=== PATIENT | male | born 1940 | race Caucasian/White ===

== ENCOUNTER 2017-04-08 09:47 | Emergency (ER) | payer MEDICARE ==
[2016-09-21 12:09] VITALS: BMI 24.3
[~2017-04-08 09:47] MED LIST: ARICEPT5 MG PO; ARTIFICIAL TEAR15 ML EACH EYE; ATROVENT 0.06%15 ML NS; DEPAKOTE SPRIN125 MG PO; GABAPENTIN100 MG PO; GEODON20 MG PO; HYDROCHLOROTHIA25 MG PO; KLONOPIN1 MG PO; LISINOPRIL10 MG PO; MIRALAX17 GM PO; TRAZODONE HCL50 MG PO; ULTRAM50 MG PO; VALIUM10 MG PO; VITAMIN D5000 UNIT PO; VOLTAREN100 GM TOPICAL; ZOLOFT50 MG PO
== END 2017-04-08 14:34 | disposition home or self-care (01) ==
LOC: D.ER 09:47
DX: H11.32 Conjunctival hemorrhage, left eye (principal); L21.9 Seborrheic dermatitis, unspecified; F31.89 Other bipolar disorder; E83.51 Hypocalcemia

== ENCOUNTER 2017-08-13 09:20 | Inpatient (IN) | payer MEDICARE, MEDICAID ==
[~2017-08-13] VITALS: Ht 172.7 cm; Wt 79.4 kg
[2017-08-13 09:52] LABS: BASOPHILS 0.3 % (0-2); EOSINOPHILS 2.3 % (0-7); HEMATOCRIT 45.4 % (42.0-54.0); HEMOGLOBIN 14.7 g/dL (13.5-17.5); IMMATURE GRANULOCYTES 0.5 % (0-5); LYMPHOCYTES 19.5 % (15-50); MCH 30.2 pg (26.0-34.0); MCHC 32.4 g/dL (31.0-37.0); MCV 93.4 fL (80.0-100.0); MEAN PLATELET VOLUME 10.3 fL (7.4-10.4); NEUTROPHILS 66.4 % (40-80); PLATELET COUNT 200 10x3/uL (130-400); RBC 4.86 10x6/uL (4.20-6.10); WBC 6.2 10x3/uL (4.8-10.8)
[2017-08-13 10:08] LABS: INR 0.92 (0.85-1.17); PROTIME 12.2 SECONDS (11.6-15.0)
[2017-08-13 10:09] LABS: APTT 30.1 SECONDS (22.8-39.4)
[2017-08-13 10:11] LABS: ALBUMIN 3.4 g/dL (3.4-5.0); ALKALINE PHOSPHATASE 80 U/L (46-116); ALT (SGPT) 23 U/L (10-68); BILIRUBIN - TOTAL 0.22 mg/dL (0.2-1.3); CALC OSMOLALITY 284 mosm/kg (275-300); CALCIUM 8.9 mg/dL (8.5-10.1); CARBON DIOXIDE 31.5 mmol/L (21.0-32.0); CHLORIDE - SERUM 102 mmol/L (98-107); CREATININE - SERUM 0.9 mg/dL (0.6-1.3); GLUCOSE 115 mg/dL (74-106); POTASSIUM - SERUM 4.4 mmol/L (3.5-5.1); PROTEIN - SERUM 7.1 g/dL (6.4-8.2); SODIUM 141 mmol/L (136-145); UREA NITROGEN 21 mg/dL (7-18); eGFR NON AFRICAN AMERICAN 87 mL/min (90-120)
[2017-08-13 10:22] LABS: CKMB 2.1 U/L (0.0-3.6); CREATINE KINASE 168 UL (21-232)
[2017-08-13 10:34] LABS: TROPONIN-I < 0.017 ng/mL (0.000-0.060)
[2017-08-13 11:20] LABS: AMORPHOUS SEDIMENT <1+ /lpf (NONE SEEN); APPEARANCE CLEAR (CLEAR); BACTERIA FEW /hpf (NONE SEEN); BILIRUBIN NEGATIVE (NEGATIVE); COLOR YELLOW (YELLOW); EPITHELIAL CELLS RARE /hpf (0-5); GLUCOSE NEGATIVE (NEGATIVE); KETONE NEGATIVE (NEGATIVE); LEUKOCYTE ESTERASE NEGATIVE (NEGATIVE); MUCUS <1+ /lpf (NONE SEEN); NITRITE NEGATIVE (NEGATIVE); PROTEIN NEGATIVE (NEGATIVE); SPECIFIC GRAVITY 1.005 (1.005-1.020); UROBILINOGEN NORMAL (NORMAL)
--- NOTE | 2017-08-13 13:48 | NUR ---
RECEIVED TO ROOM 2233 FROM ER. ECHO BEING PERFORMED.
[2017-08-13 14:10] VITALS: BP 170/73; BMI 26.6
[2017-08-13] MEDS ORDERED: ASCORBIC ACID500 MG PO (14:30)
[2017-08-13] MEDS ORDERED: BUSPAR5 MG PO (14:31)
[2017-08-13] MEDS ORDERED: CALTRATE 600 M600 M1 PO (14:32)
[2017-08-13] MEDS ORDERED: CLARITIN 10 MG10 MG PO (14:33)
[2017-08-13] MEDS ORDERED: COLACE100 MG PO (14:37)
[2017-08-13] MEDS ORDERED: KLONOPIN1 MG PO (14:37)
[2017-08-13] MEDS ORDERED: GEODON20 MG PO (14:38)
[2017-08-13] MEDS ORDERED: IPRATROPIUM BR42 MCG NASAL (14:39)
[2017-08-13] MEDS ORDERED: MELATONIN 3 MG1 TAB (14:53)
[2017-08-13] MEDS ORDERED: MILK OF MAGNESI30 ML PO (14:54)
[2017-08-13] MEDS ORDERED: HYDROCODONE-APA1 TAB PO ×2 (14:55→14:56)
[2017-08-13] MEDS ORDERED: VITAMIN D250000 UNIT PO (14:58)
[2017-08-13] MEDS ORDERED: VOLTAREN100 GM TOPICAL (14:59)
[2017-08-13] MEDS ORDERED: ZOLOFT50 MG PO (15:00)
[2017-08-13 16:24] VITALS: BP 150/65
--- NOTE | 2017-08-13 19:10 | NUR ---
OFF FLOOR TO MRI VIA STRETCHER.
[2017-08-13 20:00] VITALS: BP 132/76
[2017-08-14 04:00] VITALS: BP 140/80
--- NOTE | 2017-08-14 04:06 | NUR ---
EYES CLOSED RESPIRATIONS WITH EASE AND UNLABORED. SR UP X2 CALL LIGHT WITHIN REACHR.
--- NOTE | 2017-08-14 07:30 | NUR ---
PT AOX1 RESP EVEN AND NONLABORED PT HAS CONTINUAL NEEDS OF WANTING TO GET OUT OF BED AND GO DOWN STAIRS PT REMINDED HE CAN NOT GO DOWN STAIRS HE IS TO STAY IN BED. IV TO RIGHT HAND PATENT AND INTACT AT THIS TIME SRX2 BED AT LOWEST SETTING CALL LIGHT WITHIN REACH WILL CONTINUE TO MONITOR
[2017-08-14 08:02] VITALS: BP 124/68
[2017-08-14 12:21] VITALS: BP 160/82
--- NOTE | 2017-08-14 12:22 | EC ---
PATIENT:SATHISH GREENE DATE OF SERVICE: 08/13/17 SEX: M MEDICAL RECORD: [id number] DATE OF : 40 LOCATION:D.[facility] AGE OF PATIENT: 77 ADMISSION DATE: 08/13/17 REFERRING PHYSICIAN: INTERPRETING PHYSICIAN: KATHYA SHERIDAN MD ECHOCARDIOGRAM REPORT ECHO CHARGES 4 ECHO COMPLETE CLINICAL DIAGNOSIS: CVA ECHOCARDIOGRAPHIC MEASUREMENTS (adult normal given) AC root (d.<3.7cm) 3.2 cm LV Septum d (<1.2 cm> 1.5 cm Valve Excursion 1.8 cm LV Septum (systole) 1.8 cm Left Atria (s.<4.0cm> 3.5 cm LVPW d(<1.2cm) 1.4 cm RV (d.<2.3cm) 2.5 cm LVPW (sytole) 1.9 cm LV diastole(<5.6CM) 4.7 cm MV E-F(>70mm/sec) cm LV systole 2.6 cm LVOT Diameter 1.7 cm MV exc.(>10mm) cm Est.ejection fraction (50-75%) % Pericardial Effusion N DOPPLER: LVIT cm/sec A 84.0 cm/sec E 70.0 cm/sec LA cm/sec RVSP mmHg LVOT 107 cm/sec AOP1/2T m/s Asc. Ao 141 cm/sec RVOT 39.0 cm/sec RA cm/sec PA 93.0 cm/sec AV Gradient Peak 8.0 mmHg AV Mean 4.2 mmHg AV Area 1.2 cm MV Gradient Peak 3.1 mmHg MV Mean 1.0 mmHg MV Area cm COMMENTS: Frame Stylist: 1 CEDRIC CHASEOE Inspector Sheet Metal Parts: 3 Dr. Gomez TAPE# PACS DATE OF SERVICE: 08/13/2017 FINDINGS: 1. Left ventricular chamber size is within normal limits. Left ventricular systolic function is normal. Overall ejection fraction estimated at 55%. 2. Left atrium, right atrium, and right ventricle chamber sizes are within normal limits. 3. Valvular structures have normal structure and motion. 4. Doppler interrogation only reveals trace mitral regurgitation, trace tricuspid regurgitation. No other valvular insufficiency or stenosis. ECHOCARDIOGRAM REPORT [id number] SATHISH GREENE 5. No evidence of pericardial effusion or left ventricular thrombus. TRANSINT:[id number] Voice Confirmation ID: [id number] DOCUMENT ID: [id number] KATHYA SHERIDAN MD at 1222 CC: [id number] DICTATION DATE: 08/13/17 1639 PRODUCTION HELPER: 08/13/17 2224 ADM IN [place] [id number] [place] [id number]
[2017-08-14 14:39] VITALS: Ht 172.7 cm; Wt 79.4 kg
[2017-08-14 16:01] VITALS: BP 137/75
[2017-08-14 20:00] VITALS: BP 148/60
--- NOTE | 2017-08-14 22:05 | NUR ---
HEARD PATIENT YELL OUT "HELP, I FELL AND I NEED HELP GETTING UP!" WENT IN PATIENT'S ROOM, HE WAS SITTING ON THE FLOOR, ON A PINK PAD, BLOOD PRESENT ON THE PINK PAD. IV LAYING IN THE FLOOR BESIDE HIM. TOLD HIM TO STAY STILL WHILE I GET HELP. FOUND 3 OTHER NURSES/CNAS TO HELP. ASKED PATIENT IF HE IS HAVING ANY PAIN HE STATED "IN MY RIGHT KNEE." PATIENT HAS A BRACE IN THE CHAIR. HE STATED "I HAVE BAD KNEES." WE PICKED PATIENT UP AND GOT HIM BACK IN BED. WE DID A SKIN ASSESSMENT, NO ABNORMAL FINDING. NO CUTS, LACERATIONS OR BLEEDING. THERE IS DRIED BLOOD ON HIS ARM FROM THE IV. REMOVED PATIENT'S SOCKS AND APPLIED NON-SKID SOCKS. APPLIED A YELLOW ARM BAD. PUT A MIRNA MAT ON PATIENT'S BED. CHECKED FUNCTIONING OF THE MIRNA ALARM, IT IS TURNED ON. GAVE PATIENT HIS CALL LIGHT. 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 WHY WERE YOU GETTING OUT OF THE BED?" PATIENT STATED "I WAS GETTING READY FOR BED." BED IS IN LOWEST POSITION, CALL LIGHT IN REACH. BED RIALS UP X'S 2. EPI LAMAR CALLED . CHARLIE CORONA NOTIFIED OF PATIENT'S FALL.
[2017-08-15 04:00] VITALS: BP 130/72
--- NOTE | 2017-08-15 07:48 | NUR ---
2220) Josue Pro as person to notify notified of incident with no injuries assessed.will continue to monitor for any chges. and follow current plan of care
[2017-08-15 07:58] VITALS: BP 137/80
--- NOTE | 2017-08-15 08:00 | NUR ---
PT CONFUSED AOX1 SELF PT DENIES NEEDS AT THIS TIME SRX2 BED AT LOWEST SETTING CALL LIGHT WITHIN REACH WILL CONTINUE TO MONITOR
[2017-08-15 12:24] VITALS: BP 127/70
--- NOTE | 2017-08-15 13:09 | NUR ---
Patient Name: SATHISH GREENE Admission Status: ER Accout number: [id number] Admission Date: 08-14-2017 : 1940 Admission Diagnosis:TRANSIENT CEREBRAL ISCHEMIC ATTACK, UNSPECIFIED Attending: SHAMA SIMMONS Current LOS: 1 Anticipated DC Date: 08-18-2017 Planned Disposition: Nursing Facility [facility] Cert Primary Insurance: MEDICARE A & B Discharge Planning Comments: CM CALLED FACILITY FOR INFORMATION REGARDING D/C NEEDS AND PLANS. PATIENT IS A RESIDENT AT [facility]. FACILITY [facility] WILL TRANSPORT PATIENT. PATIENT USES A WHEELCHAIR AT FACILITY AND IS A 2 PERSON TRANSFER. PATIENTS PCP IS DR. WATSON AND PHARMACY IS IN HOUSE. CM WILL CONTINUE TO FOLLOW PATIENT WITH D/C NEEDS AND PLANS. PCP DR. WATSON [facility] IN HOUSE PHARMACY DEBBIEMc GREENE (BROTHER) [phone] Lie Detector Operator: Bridget Santacruz Is the patient Alert and Oriented? Yes 0 * How many steps to enter\exit or inside your home? 0 0 * PCP DR. WATSON 0 * Pharmacy IN HOUSE 0 * Preadmission Environment Gas Line Installer Supervisor Retirement 0 * ADLs Partial Dependent 0 * Partial ADLs (Assistance needed) Bathing Dressing Medication Management Toileting Transfers 0 * List name and contact numbers for known caregivers / representatives who currently or will assist patient after discharge: DEBBIE GREENE (BROTHER) [phone] 0 * Community resources currently utilized None 0 * Additional services required to return to the preadmission environment? Yes 0 * Can the patient safely return to the preadmission environment? Yes 0 * Has this patient been hospitalized within the prior 30 days at any hospital? No 0 Grand Total: 0
[2017-08-15 15:27] VITALS: BP 115/68
--- NOTE | 2017-08-15 19:40 | NUR ---
REC'D LYING IN BED RESTING. NO DISTRESS NOTED. WILL CONT TO MONITOR. WILL ADMIN PM/AM MEDS PRESCRIBED. BED LOW, LOCKED, CALL LIGHT IN REACH, ALARM ON.
[2017-08-15 20:00] VITALS: BP 126/62
[2017-08-16 04:00] VITALS: BP 122/62
--- NOTE | 2017-08-16 05:48 | NUR ---
PT RESTING QUIETLY, EYES CLOSED. RESP EVEN, UNLABORED. NO DISTRESS NOTED. CONTINUE SHEET WRITER'S PLAN OF CARE.
[2017-08-16 07:05] VITALS: BP 124/62
--- NOTE | 2017-08-16 07:24 | NUR ---
PRN TRAMADOL ADMINISTERED AT THIS TIME FOR PAIN 08/10. CALL LIGHT IN REACH. WILL CONTINUE WITH PLAN OF CARE.
--- NOTE | 2017-08-16 09:30 | NUR ---
AM MEDICATIONS ADMINISTERED AT THIS TIME. DENIES ANY FURTHER NEEDS. CALL LIGHT IN REACH, SIDE RAILS X2. WILL CONTINUE WITH PLAN OF CARE.
[2017-08-16] MEDS ORDERED: ASPIRIN325 MG PO (11:02)
--- NOTE | 2017-08-16 11:53 | NUR ---
REPORT CALLED TO NOEMI AT [facility]. WILL NOTIFY FACILITY WHEN AMBULANCE ARRIVES TO TRANSPORT PATIENT.
--- NOTE | 2017-08-16 12:21 | NUR ---
D/C PAPERWORK REVIEWED AND IV TO LEFT ARM D/C WITH CATH TIP INTACT.
--- NOTE | 2017-08-16 14:24 | NUR ---
LATE ENTRY 1100 DR SIMMONS ADVISED COURTNEY THAT PATIENT COULD BE DISCHARGED BACK TO [facility] TODAY. TC TO FACILITY. PATIENT CAN RETURN TODAY. CM FAXED CLINICAL AND DISCHARGE SUMMARY. CM PREPARED AMBULANCE TRANSPORT FORM (PCS) THE PRIMARY NURSE, JAZMIN, CALLED REPORT AND FAXED MEDICATION LIST. PATIENT WILL BE DISCHARGED TO A MEDICARE BED PER NOEMI AT [facility]. [facility] PHONE NUMBER- [phone] FAX NUMBER- [phone] TRANSPORTATION VIA [facility]
== END 2017-08-16 14:05 | DRG 65 ==
LOC: D.ER 09:20 → OBSVTIME 12:23 → D.MS 12:23
PROVIDERS: Family Medicine; ADMIT Family Medicine
DX: I63.9 Cerebral infarction, unspecified (principal); F31.89 Other bipolar disorder; I69.354 Hemiplegia and hemiparesis following cerebral infarction affecting left non-dominant side; I10 Essential (primary) hypertension; I69.991 Dysphagia following unspecified cerebrovascular disease; R53.1 Weakness; R13.10 Dysphagia, unspecified; F41.8 Other specified anxiety disorders; Z86.12 Personal history of poliomyelitis

== ENCOUNTER 2017-09-06 19:59 | Inpatient (IN) | payer MEDICARE, MEDICAID ==
[~2017-09-06 19:59] MED LIST changes: +ASCORBIC ACID500 MG PO; +ASPIRIN325 MG PO; +BUSPAR5 MG PO; +CALTRATE 600 M600 M1 PO; +CLARITIN 10 MG10 MG PO; +COLACE100 MG PO; +HYDROCODONE-APA1 TAB PO; +IPRATROPIUM BR42 MCG NASAL; +MELATONIN 3 MG1 TAB; +MILK OF MAGNESI30 ML PO; +VITAMIN D250000 UNIT PO
[2017-09-06 20:52] LABS: BASOPHILS 0.4 % (0-2); EOSINOPHILS 2.5 % (0-7); HEMATOCRIT 42.2 % (42.0-54.0); HEMOGLOBIN 13.4 g/dL (13.5-17.5); IMMATURE GRANULOCYTES 0.4 % (0-5); LYMPHOCYTES 25.6 % (15-50); MCH 29.8 pg (26.0-34.0); MCHC 31.8 g/dL (31.0-37.0); MCV 93.8 fL (80.0-100.0); MEAN PLATELET VOLUME 10.3 fL (7.4-10.4); MONOCYTES 11.7 % (2-11); NEUTROPHILS 59.4 % (40-80); PLATELET COUNT 203 10x3/uL (130-400); RDW 13.7 % (11.5-14.5); WBC 5.5 10x3/uL (4.8-10.8)
[2017-09-06 21:01] LABS: INR 1.03 (0.85-1.17); PROTIME 13.3 SECONDS (11.6-15.0)
[2017-09-06 21:02] LABS: APTT 29.9 SECONDS (22.8-39.4)
[2017-09-06 21:13] LABS: ALKALINE PHOSPHATASE 67 U/L (46-116); ALT (SGPT) 22 U/L (10-68); BILIRUBIN - TOTAL 0.16 mg/dL (0.2-1.3); CALC OSMOLALITY 279 mosm/kg (275-300); CALCIUM 8.4 mg/dL (8.5-10.1); CARBON DIOXIDE 31.8 mmol/L (21.0-32.0); CHLORIDE - SERUM 103 mmol/L (98-107); CREATININE - SERUM 0.8 mg/dL (0.6-1.3); GLUCOSE 89 mg/dL (74-106); POTASSIUM - SERUM 3.9 mmol/L (3.5-5.1); PROTEIN - SERUM 6.4 g/dL (6.4-8.2); SODIUM 140 mmol/L (136-145); UREA NITROGEN 18 mg/dL (7-18); eGFR NON AFRICAN AMERICAN > 90 mL/min (90-120)
--- NOTE | 2017-09-07 01:13 | NUR ---
PATIENT IS ALERT, ARRIVED FROM THE ER VIA STRETCHER. IV SITE IS LEFT FOREARM SALINE LOCKED. ORIENTED TO ROOM AND CALL LIGHT. DENIES PAIN OR NEEDS AT THIS TIME.
[2017-09-07] MEDS ORDERED: HYDROCODONE-APA1 TAB PO (01:25)
[2017-09-07 01:39] VITALS: BMI 25.9
--- NOTE | 2017-09-07 03:49 | NUR ---
CONSULT TO DR EASLEY, DR EASLEY NOTIFIED AT 0350.
[2017-09-07 04:00] VITALS: BP 160/73
--- NOTE | 2017-09-07 08:15 | NUR ---
PT RESTING IN BED WITH EYES OPEN CALL LIGHT IN REACH PT NPO FOR MRI WILL MONITER
[2017-09-07 09:09] VITALS: BP 125/60
--- NOTE | 2017-09-07 10:45 | NUR ---
PT TAKEN TO MRI ON STRETCHER PER TRANSPORT TRUCK DRIVER
--- NOTE | 2017-09-07 11:32 | NUR ---
PT RETURNED FROM MRI
[2017-09-07 12:42] VITALS: BP 155/79
--- NOTE | 2017-09-07 14:42 | NUR ---
PT IN BED AND APPEARS TO BE SLEEPING AT THIS TIME WITH EQUAL AND NON LABORED BREATHING. BED AT LOWEST POSITION. CALL [place] IN USE/REACH. SIDE RAILS UP X2. WILL CONTINUE TO MONITOR.
[2017-09-07 16:39] VITALS: BP 140/93
--- NOTE | 2017-09-07 18:08 | NUR ---
PT RESTING IN BED WITH EYES OPEN CALL LIGHT IN REACH WILL MONITER
[2017-09-07 19:00] VITALS: BP 96/67
--- NOTE | 2017-09-07 19:42 | NUR ---
PT CALLS ME IN ROOM TO C/O CALL LIGHT NOT TURNING CHANNELS FAST HE WANTS.... STATES HE WANTS A NEW ONE. STATES HIS PAIN IS 50.. I PUT 09/09. PT HAS NS INFUSING TO LEFT FOREARM AT 75. PT DENIES ANY OTHER NEEDS AT THIS TIME. NO S/S OF DISTRESS. WILL CPOC
--- NOTE | 2017-09-07 22:23 | NUR ---
PT SAID HE DOES NOT WANT ANY MEDS. SAID FOR ME TO LEAVE HIS ROOM SO HE CAN SLEEP. PT WAS AAO BUT I DONT THINK HE HAS SHORT TERM MEMORY. POSSIBLE ALTERED THOUGHT PROCESS. PT THAN CALLED ME BACK IN ROOM AND DEMANDED A PAIN PILL. BUT STILL WOULD NOT TAKE ANY OTHER MEDS. TOLD PT HE HAS THE RIGHT TO REFUSE BUT IF HE IS TAKING A PAIN PILL HE MIGHT WELL TAKE HIS OTHER MEDICATIONS. PT SAID NO. PT DENIES ANY OTHER NEEDS. NO S/S OF DISTRESS. WILL CPOC
[2017-09-08] VITALS: BP 152/70; BP 168/79
--- NOTE | 2017-09-08 00:30 | NUR ---
PT INCONT MODERATE AMOUT. WHOLE BED CHANGE NEEDED. PT IS STIFF AND WEAK IN LEGS. PT NOW CLEAN AND DRY. NEW GOWN AND LINEN, PT REPOSITIONED. NO OTHER NEEDS. BED LOW CALL LIGHT IN REACH. WILL CPOC
--- NOTE | 2017-09-08 01:49 | NUR ---
PT CALLED. INCONT AGAIN ON BED ASKED TO BE BE PUT ON BEDPAN. PT ON BED ROBISON HOLDING URINAL. PT GETS PUT ON BED PAIN AND CALLS LESS THAN A MIN LATER STATING HE COULDNT HAVE A BM... CLEANED PT NEW GOWN AND PAD. REPOSITIONED PT. PT HAS NO S/S OF DISTRESS. WILL CPOC
--- NOTE | 2017-09-08 05:28 | NUR ---
PT C/O CONSTIPATION. GAVE PT MILK OF MAG. SET PT UP 45. PT DENIES ANY OTHER NEEDS. NO S/S OF DISTRESS. WILL CPOC
--- NOTE | 2017-09-08 07:20 | NUR ---
REPORT RECEIVED. RR EVEN AND UNLABORED. PT REPORTS FEELING "CONGESTED THIS MORNING." ASSESSMENT SHOWED CRACKLES IN RIGHT AND LEFT SIDE OF LUNG FEILDS. WILL CTM.
[2017-09-08 08:00] VITALS: BP 165/72
--- NOTE | 2017-09-08 09:06 | NUR ---
PT INCONTINENT LARGE AMT STOOL. CHANGED LINENS AND PROVIDED MARY CARE X2 ASSIST, PT RESTING QUIETLY, WILL CTM.
[2017-09-08 09:21] VITALS: BMI 26.9
--- NOTE | 2017-09-08 15:00 | NUR ---
PT CALLED ME INTO HIS ROOM. HE IS CONCERNED ABOUT BEING D/C, SAYING "THE DOCTORS DON'T KNOW WHAT IS CAUSING THIS." PT WILL BE D/C BACK TO [facility]. PT AND I DISCUSSED D/C FOR ABOUT 10 MINUTES.
--- NOTE | 2017-09-08 15:58 | NUR ---
[facility] TRANSPORT HERE TO TOURS HOSTESS PT. IV REMOVED WITH CATHETER TIP INTACT. TELE REMOVED AND RETURNED TO FEDERAL LAW CLERK. PT WILL BE LEAVING VIA WHEELCHAIR. WILL CALL REPORT TO [facility] ABOUT PT CONDITION.
--- NOTE | 2017-09-08 16:21 | NUR ---
Patient Name: SATHISH GREENE Admission Status: ER Accout number: [id number] Admission Date: 09-07-2017 : 1940 Admission Diagnosis: Attending: DALY ALCAZAR Current LOS: 1 Anticipated DC Date: 09-08-2017 Planned Disposition: Senior Care Facility Primary Insurance: MEDICARE A & B PLANNED EXTERNAL PROVIDER: [facility], MEDICARE REHAB BED Discharge Planning Comments: * Is the patient Alert and Oriented? Yes 0 * How many steps to enter\exit or inside your home? NONE 0 * PCP DR. WATSON 0 * Pharmacy [facility] 0 * Preadmission Environment Senior Care Facility 0 * Facility Name [facility] 0 * ADLs Partial Dependent 0 * Partial ADLs (Assistance needed) Bathing Dressing Medication Management Toileting Transfers 0 * Equipment Hospital Bed Kacey Lift Wheelchair 0 * Other Equipment ALL EQUIPMENT PROVIDED BY FACILITY 0 * List name and contact numbers for known caregivers / representatives who currently or will assist patient after discharge: DEBBIE GREENE, BROTHER, 0 * Community resources currently utilized None 0 * Please name any agencies selected above. NONE 0 * Additional services required to return to the preadmission environment? No 0 * Can the patient safely return to the preadmission environment? Yes 0 * Has this patient been hospitalized within the prior 30 days at any hospital? Yes 0 CM RECEIVED DISCHARGE PLANNING ORDER, MET WITH PT IN ROOM, PT REPORTS LIVING AT [facility] FOR THE PAST YEAR AND WILL BE GOING BACK THERE AT DISCHARGE. PT REPORTS HE DOES NOT BEAR ANY WEIGHT AND NEEDS A LIFT TO TRANSFER TO WHEELCHAIR AND REQUIRES SOMEONE TO PUSH THE CHAIR. PT DENIES FURHTER NEEDS AND INSTRUCTED CM TO CALL [facility]. CM CALLED [facility], , SPOKE TO BALDEMAR WHO REPORTS THEY WILL ACCEPT BACK TODAY AND WILL SEND V[facility] TO [employer] PT TODAY. BALDEMAR WILL CALL WITH [facility] [employer] TIME. CM FAXED DISCHARGE INFORMATION TO [facility], . NURSE REPORT TO BE CALLED TO [facility] AT [phone], BEDSIDE NURSE NOTIFIED. PT NOTIFIED. Sulfur Chloride Operator: Claudio Mehta
--- NOTE | 2017-10-06 17:41 | DS ---
PATIENT:SATHISH GREENE :40 MEDICAL RECORD: [id number] DISCHARGE SUMMARY ADMISSION DATE: 09/07/17 DISCHARGE DATE: 09/08/17 DATE OF ADMISSION: 09/07/2017. DATE OF DISCHARGE: 09/08/2017. 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 CONSULTS: Case management. PROCEDURES: None. HOSPITAL COURSE: This patient came in through the Emergency Department due to anxiety, panic attack type symptoms with multiple complaints, all of which were chronic issues surrounding a prior stroke and hemiplegia. The patient was continued on his usual home meds, his usual home diet with nectar thick liquids, and was discharged from the hospital in stable condition at his baseline. DISCHARGE MEDICATIONS: Please refer to the patient's discharge medication reconciliation printout. TRANSINT:[id number] Voice Confirmation ID: [id number] DOCUMENT ID: [id number] DALY ALCAZAR MD at 1741 CC: [id number] DICTATION DATE: 10/02/17 1315 BANQUET SUPERVISOR: 10/02/17 1407 DIS IN 09/08/17 [place] [address]
== END 2017-09-08 16:02 | DRG 57 ==
LOC: D.ER 19:59 → D.M2 09-07 00:33
PROVIDERS: Family Medicine; ADMIT Family Medicine
DX: I69.354 Hemiplegia and hemiparesis following cerebral infarction affecting left non-dominant side (principal); F31.10 Bipolar disorder, current episode manic without psychotic features, unspecified; G14 Postpolio syndrome; Z99.3 Dependence on wheelchair; I10 Essential (primary) hypertension; K21.9 Gastro-esophageal reflux disease without esophagitis; F41.9 Anxiety disorder, unspecified; M19.90 Unspecified osteoarthritis, unspecified site; K59.00 Constipation, unspecified; G47.00 Insomnia, unspecified; H04.129 Dry eye syndrome of unspecified lacrimal gland; R40.2363 Coma scale, best motor response, obeys commands, at hospital admission; R40.2143 Coma scale, eyes open, spontaneous, at hospital admission; R40.2253 Coma scale, best verbal response, oriented, at hospital admission